=== PATIENT | male | born 1970 | race Caucasian/White ===

== ENCOUNTER 2024-09-26 12:22 | Emergency (ER) | payer BC ==
--- NOTE | 2024-09-26 12:30 | ED ---
Chest Pain HPI - General Chief Complaint: Chest Pain Stated Complaint: CHEST PAIN Time Seen by Provider: 09/26/24 12:30 Source: patient, RN notes reviewed Mode of arrival: ambulatory Limitations: no limitations - History of Present Illness Initial Comments: 54-year-old male presenting to the ER for evaluation of chest tightness. He states this has been ongoing for the past 2 months. Patient states his chest is always tight and has no radiation of this sensation. He denies any associated symptoms including shortness of breath, dizziness, lightheadedness, nausea, vomiting or diaphoresis. Patient does report 2-3 episodes of waking up in the middle the night with a racing heart. No other symptoms at that time. He states this resolved after about 20 to 30 minutes. Patient contacted his PCP given these concerns today and was instructed to come to the ER for evaluation. Patient does report his father has a history of pulmonary embolisms and given a genetic blood disorder. He denies any recent travel, calf tenderness or tightness or history of blood clots. No personal cardiac history positive family cardiac history. He is not currently taking any medications besides a baby aspirin daily. No other complaints. - Related Data Allergies Allergy/AdvReac Type Severity Reaction Status Date / Time No Known Allergies Allergy Verified 09/26/24 12:28 Review of Systems ROS Statement: Those systems with pertinent positive or pertinent negative responses have been documented in the HPI. ROS Other: All systems not noted in ROS Statement are negative. EKG Findings - EKG Comments: EKG Findings:: EKG taken at 12: 37 showing a sinus rhythm. No ST segment elevations or depressions. Inverted T waves in lead III. Ventricular rate 67, MS interval 158, QRS duration 105, QT/QTc 387/403. Past Medical History Past Medical History: No Reported History History of Any Multi-Drug Resistant Organisms: None Reported Past Surgical History: No Surgical Hx Reported Past Psychological History: No Psychological Hx Reported Smoking Status: Never smoker Past Alcohol Use History: None Reported Past Drug Use History: None Reported General Exam - General Exam Comments Initial Comments: Visual Physical Exam Vital signs reviewed General: Well-appearing, nontoxic, no acute distress. Head: Normocephalic, atraumatic Eyes: PERRLA, EOMI ENT: Airway patent Chest: Nonlabored breathing Skin: No visual rash, normal skin tone Neuro: Alert and oriented 3 Musculoskeletal: No gross abnormalities Limitations: no limitations General appearance: alert, in no apparent distress Respiratory exam: Present: normal lung sounds bilaterally. Absent: respiratory distress, wheezes, rales, rhonchi, stridor Cardiovascular Exam: Present: regular rate, normal rhythm, normal heart sounds. Absent: systolic murmur, diastolic murmur, rubs, gallop, clicks Extremities exam: Present: normal inspection, full ROM, normal capillary refill. Absent: tenderness, pedal edema, joint swelling, calf tenderness Neurological exam: Present: alert, oriented X3, CN II-XII intact Skin exam: Present: warm, dry, intact, normal color. Absent: rash Course Vital Signs 09/26/24 09/26/24 12:26 15:45 Temperature 98.2 F 98 F Pulse Rate 75 64 Respiratory 20 16 Rate Blood Pressure 172/96 136/93 O2 Sat by Pulse 99 99 Oximetry Chest Pain MDM - MDM I performed the quick note portion of this chart. Electronically signed by August Morales PA-C Was pt. sent in by a medical professional or institution (MARKO Munguia, DIRECTOR OF EXHIBIT DEVELOPMENT, urgent care, hospital, or intermediate...) When possible be specific @ -Patient sent by PCP for evaluation of chest discomfort. Did you speak to anyone other than the patient for history (EMS, parent, family, police, friend...)? What history was obtained from this source @ -[No] Did you review nursing and triage notes (agree or disagree)? Why? @ -[I reviewed and agree with nursing and triage notes] Were old charts reviewed (outside hosp., previous admission, EMS record, old EKG, old radiological studies, urgent care reports/EKG's, intermediate records)? Report findings @ -[No old charts were reviewed] Differential Diagnosis (chest pain, altered mental status, abdominal pain women, abdominal pain men, vaginal bleeding, weakness, fever, dyspnea, syncope, headache, dizziness, GI bleed, back pain, seizure, CVA, palpatations, mental health, musculoskeletal)? @ -Differential Chest Pain:Stable Angina, Unstable Angina, STEMI, NSTEMI Aortic Dissection, Pneumothorax, Musculoskeletal, Esophageal Spasm GERD, Cholecystitis, Pancreatitis, Zoster, this is not meant to be an all-inclusive list. EKG interpreted by me (3pts min.). @ -[As above] X-rays interpreted by me (1pt min.). @ -[CXR interpreted by me negative for acute focal consolidations, pneumothorax or pleural effusions.] CT interpreted by me (1pt min.). @ -[None done] U/S interpreted by me (1pt. min.). @ -[None done] What testing was considered but not performed or refused? (CT, X-rays, U/S, labs)? Why? @ -[None] What meds were considered but not given or refused? Why? @ -[None] Did you discuss the management of the patient with other professionals (professionals i.e. , PA, DIRECTOR OF EXHIBIT DEVELOPMENT, lab, RT, psych nurse, social services analyst, user experience developer, teacher, chief innovation officer, case specialist)? Give summary @ -[No] Was smoking cessation discussed for >3mins.? @ -[No] Was critical care preformed (if so, how long)? @ -[No] Were there social determinants of health that impacted care today? How? (Homelessness, low income, unemployed, alcoholism, drug addiction, transportation, low edu. Level, literacy, decrease access to med. care, fdc, rehab)? @ -[No] Was there de-escalation of care discussed even if they declined (Discuss DNR or withdrawal of care, Hospice)? DNR status @ -[No] What co-morbidities impacted this encounter? (DM, HTN, Smoking, COPD, CAD, Cancer, CVA, ARF, Chemo, Hep., AIDS, mental health diagnosis, sleep apnea, morbid obesity)? @ -[None] Was patient admitted / discharged? Hospital course, mention meds given and route, prescriptions, significant lab abnormalities, going to OR and other pertinent info. @ -[hospital course] Undiagnosed new problem with uncertain prognosis? @ -[No] Drug Therapy requiring intensive monitoring for toxicity (Heparin, Nitro, Insulin, Cardizem)? @ -[No] Were any procedures done? @ -[No] Diagnosis/symptom? @ -[default] Acute, or Chronic, or Acute on Chronic? @ -[default] Uncomplicated (without systemic symptoms) or Complicated (systemic symptoms)? @ -[default] Side effects of treatment? @ -[No] Exacerbation, Progression, or Severe Exacerbation? @ -[No] Poses a threat to life or bodily function? How? (Chest pain, [place], [place], pneumonia, PE, COPD, DKA, ARF, appy, cholecystitis, CVA, Diverticulitis, Homicidal, Suicidal, threat to staff... and all critical care pts) @ -[No] Disposition Clinical Impression: Atypical chest pain Disposition: HOME SELF-CARE Condition: Stable Instructions (If sedation given, give patient instructions): Chest Pain (ED), Hypertension (ED) Additional Instructions: Follow-up with PCP. I would also recommend cardiology evaluation. Return to the ER for any new or worsening symptoms. Is patient prescribed a controlled substance at d/c from ED?: No Referrals: Eyal Loco DO [Primary Care Provider] - 1-2 days Time of Disposition: 15:50
[2024-09-26 13:12] LABS: Basophils % (A) 1 %; Eosinophils # (A) 0.4 k/uL (0-0.7); Eosinophils % (A) 8 %; HCT 50.6 % (39.0-53.0); HGB 16.6 gm/dL (13.0-17.5); Lymphocytes # (A) 1.4 k/uL (1.0-4.8); Lymphocytes % (A) 27 %; MCH 29.8 pg (25.0-35.0); MCHC 32.8 g/dL (31.0-37.0); MCV 90.9 fL (80.0-100.0); Mean Platelet Volume 7.4; Monocytes # (A) 0.5 k/uL (0-1.0); Monocytes % (A) 9 %; Neutrophils # (A) 2.9 k/uL (1.3-7.7); Neutrophils % (A) 53 %; Platelet Count 239 k/uL (150-450); RBC 5.56 m/uL (4.30-5.90); RDW 12.4 % (11.5-15.5); WBC 5.4 k/uL (3.8-10.6)
[2024-09-26 13:21] LABS: Partial Thromboplastin Time 23.5 sec (22.0-30.0); Prothrombin Time 10.8 sec (10.0-12.5)
[2024-09-26 13:28] LABS: ALT 46 U/L (4-49); AST 35 U/L (17-59); African American GFR (CKD) >90 (>60 ml/min/1.73 sqM); Albumin 5.1 g/dL (3.5-5.0); Alkaline Phosphatase 79 U/L (38-126); Anion Gap 10 mmol/L; Blood Urea Nitrogen 13 mg/dL (9-20); Calcium 9.8 mg/dL (8.4-10.2); Carbon Dioxide 26 mmol/L (22-30); Chloride 104 mmol/L (98-107); Glucose 89 mg/dL (74-99); Magnesium 2.3 mg/dL (1.6-2.3); Non-African American GFR(CKD) >90 (>60 ml/min/1.73 sqM); Potassium 4.5 mmol/L (3.5-5.1); Sodium 140 mmol/L (137-145); Total Bilirubin 0.7 mg/dL (0.2-1.3); Total Protein 7.9 g/dL (6.3-8.2)
--- NOTE | 2024-09-26 14:02 | XR ---
EXAMINATION TYPE: XR chest 2V DATE OF EXAM: 09/26/2024 1:59 PM COMPARISON: None. CLINICAL INDICATION: Male, 54 years old with history of Chest Pain, TECHNIQUE: Frontal and lateral views of the chest are obtained. FINDINGS: There is no focal air space opacity, pleural effusion, or pneumothorax seen. The cardiac silhouette size is within normal limits. The osseous structures are intact. IMPRESSION: No acute process. [facility], , 09/26/2024 2:00 PM
[2024-09-26 15:47] VITALS: BP 136/93; PULSE 64; RESP 16; TEMP 98
== END 2024-09-26 15:59 | disposition home or self-care (01) ==
LOC: EC 12:22
DX: R07.89 Other chest pain (principal)
CPT/HCPCS: 36415; 71046; 80053; 83735; 84484; 85025; 85379; 85610; 85730; 93005; 99285

== ENCOUNTER → 2024-12-06 | Outpatient (CLI) | payer BC ==
[2024-12-06 15:20] LABS: Chol/HDL Ratio 3.43 Ratio; LDL Cholesterol,Calculated 134.7 mg/dL (0.0-131.0); Prostate Specific Antigen 1.06 ng/mL (0.000-3.500)
== END | disposition home or self-care (01) ==
LOC: LABWHC1 11:11
PROVIDERS: ATTEND Family Medicine
DX: R07.9 Chest pain, unspecified (principal); R00.0 Tachycardia, unspecified
CPT/HCPCS: 36415; 80061; 82306; 83036; 83525; 84153; 84443

== ENCOUNTER → 2024-12-27 | Outpatient (CLI) | payer BC ==
[~2024-12-27] MED LIST: REGADENOSON 0.4 MG/5 ML SYRINGE IV PRN
--- NOTE | 2024-12-27 11:08 | CA ---
Transthoracic Echo Report Name: Sterling Bryant Age: 54 Gender: M : 1970 Exam Date: 12/27/2024 08:07 Exam Location: [facility] Ht (in): 70 Wt (lb): 205 Ordering Physician: Eyal Loco DO Attending/Referring Phys: Outer Diameter Grinder Sue Anderson RDCS Procedure CPT: Indications: R07.9 CHEST PAIN Cardiac Hx: Technical Quality: Good Contrast 1: Total Dose (mL): Contrast 2: Total Dose (mL): MEASUREMENTS (Male / Female) Normal Values 2D ECHO LV Diastolic Diameter PLAX 4.7 cm 4.2 - 5.9 / 3.9 - 5.3 cm LV Systolic Diameter PLAX 2.9 cm IVS Diastolic Thickness 1.2 cm 0.6 - 1.0 / 0.6 - 0.9 cm LVPW Diastolic Thickness 1.2 cm 0.6 - 1.0 / 0.6 - 0.9 cm LV Relative Wall Thickness 0.5 RV Internal Dim ED PLAX 3.0 cm LA Systolic Diameter LX 3.5 cm 3.0 - 4.0 / 2.7 - 3.8 cm LV Diastolic Volume MOD BP 115.8 cm??? 67 - 155 / 56 - 104 cm??? LV Systolic Volume MOD BP 43.8 cm??? 22 - 58 / 19 - 49 cm??? LV Ejection Fraction MOD BP 62.2 % >= 55 % LV Cardiac Index MOD BP 2028.2 cm???/min???m??? LV Diastolic Volume MOD 4C 128.6 cm??? LV Systolic Volume MOD 4C 41.1 cm??? LV Ejection Fraction MOD 4C 68.0 % LV Cardiac Index MOD 4C 2465.7 cm???/min???m??? LV Diastolic Length 4C 8.8 cm LV Systolic Length 4C 7.4 cm LV Diastolic Volume MOD 2C 102.4 cm??? LV Systolic Volume MOD 2C 45.7 cm??? LV Ejection Fraction MOD 2C 55.4 % LV Cardiac Index MOD 2C 1598.9 cm???/min???m??? LV Diastolic Length 2C 9.1 cm LV Systolic Length 2C 7.1 cm M-MODE Aortic Root Diameter MM 3.6 cm LA Systolic Diameter MM 3.4 cm LA Ao Ratio MM 0.9 AV Cusp Separation MM 2.1 cm DOPPLER Mitral E Point Velocity 85.8 cm/s Mitral A Point Velocity 76.7 cm/s Mitral E to A Ratio 1.1 MV Deceleration Time 332.9 ms MV E' Velocity 6.9 cm/s Mitral E to MV E' Ratio 12.4 TR Peak Velocity 207.5 cm/s TR Peak Gradient 17.2 mmHg FINDINGS Left Ventricle Left ventricular ejection fraction is estimated at 60-65 %. Mildly increased septal wall thickness. Normal left ventricular systolic function with no obvious regional wall motion abnormalities. Left ventricular cavity size normal. Right Ventricle Normal right ventricular size and function. Right ventricular systolic pressure within normal limits. Right Atrium Normal right atrial size. Left Atrium Normal left atrial size. Mitral Valve Structurally normal mitral valve. Trace mitral regurgitation. No mitral stenosis. Aortic Valve Trileaflet aortic valve. No aortic valve stenosis or regurgitation. Tricuspid Valve Structurally normal tricuspid valve. Trace to mild tricuspid regurgitation. No tricuspid stenosis. Pulmonic Valve Structurally normal pulmonic valve. No pulmonic stenosis. Trace pulmonic regurgitation. Pericardium No pericardial or pleural effusion. Aorta Aorta at upper limits of normal. CONCLUSIONS Normal biventricular systolic function Normal pulmonary artery systolic pressure No significant valvular abnormalities noted No pericardial effusion Previewed by: Dr. Aydin Garcia MD (Electronically Signed) Final Date: 27 December 2024 11:07
--- NOTE | 2024-12-27 12:42 | CA ---
Lexiscan Nuclear Stress Test Report Name: Sterling Bryant Exam Date: 12/27/2024 09:17 Exam Location: [facility] Ht (in): 70 Wt (lb): 205 BSA: 2.11 Ordering Phys: Danyel Jimenes DO Referring Phys: DANYEL JIMENES Technologist: RAW Age: 54 Gender: M : 1970 Procedure CPT: Indications: R07.9 CHEST PAIN ICD-10 Codes: Patient History: Chest pain and family history of heart disease. Medications: ASA 81 mg,,, Meds past 24 hrs: Pretest Chest Pain: STRESS TEST Lexiscan Protocol Exercise Duration (min:sec): 02:[address] Depressions (mm): Angina Score: Wolf Score: Resting HR (bpm): 56 Peak HR (bpm): 80 Resting BP (mmHg): 126 / 79 Peak BP (mmHg): / 78 MPHR: 166 Target HR: 141 % MPHR: 48 METS: 1.0 Total Dose: Peak Dose: Atropine: Double Product: BP Response: Stress Termination: INFUSION COMPLETE Stress Symptoms: NO SYMPTOMS Stress Summary: ECG ANALYSIS Resting ECG: Stress ECG: CONCLUSIONS Nondiagnostic stress testing Dr. Aydin Garcia MD (Electronically Signed) Final Date: 27 December 2024 12:42
--- NOTE | 2024-12-27 13:49 | NM ---
EXAMINATION TYPE: NM stress lexiscan cardiolite DATE OF EXAM: 12/27/2024 COMPARISON: NONE CLINICAL INDICATION: Male, 54 years old with history of R07.9 chest pain; family history of heart att ack in mom TECHNIQUE: After the intravenous administration of 10.32 mCi Tc 99m Sestamibi - Cardiolite resting S PECT images acquired 45 minutes post injection. The patient received 0.4mg Lexiscan, 25.3 mCi Tc 99m Sestamibi - Stress images obtained [address] injection FINDINGS: Review of stress and rest SPECT images demonstrates no distinct perfusion abnormality. Gated analysi s shows normal wall motion with an estimated left ventricular ejection fraction of 64 %. IMPRESSION: No scintigraphic evidence for reversible ischemia. [facility], , 12/27/2024 1:47 PM
== END | disposition home or self-care (01) ==
LOC: RADNMMAIN 07:20
PROVIDERS: ATTEND Family Medicine
DX: R00.0 Tachycardia, unspecified (principal); R07.9 Chest pain, unspecified; Z82.49 Family history of ischemic heart disease and other diseases of the circulatory system
CPT/HCPCS: 93017; 93306; 93270; 78452; A9500; J2785